=== PATIENT | male | born 1970 | race Caucasian/White ===

== ENCOUNTER 2023-08-06 10:21 | Outpatient (AMB) | payer OTHER, SELFPAY ==
[2023-08-06 12:09] VITALS: BP 120/68; PULSE 71; O2SAT 96; BMI 38.9
--- NOTE | 2023-08-06 12:09 | AM.OFFWIN_ITS ---
Intake Vital Signs 08/06/23 12:09 Height 6 ft Weight 287 lb BMI 38.9 BP 120/68 Blood Pressure Location Lt brachial Position Sitting Pulse 71 Pulse Source Pulse Oximeter Pulse Oximetry (%) 96 Oxygen Delivery Method Room Air Intake Visit Reasons: EP, left ankle pain Intake Note: Patient is here with left ankle pain since Saturday, while he was at work, noticed discomfort while he was working. Allergies No Known Allergies Allergy (Verified 08/06/23 12:11) HPI HPI Comments History of Present Illness Details Patient is a 53-year-old male in today for a sick visit. His chief complaint is left ankle pain x4 days. Patient denies any trauma to the ankle, he denies hearing any cracks crepitus or pops. He states that the pain can be so intense that he is unable to walk on it. The pain tends to come and go. One moment he is at home and he can stand on his left foot, and a couple hours later he says he is able to go out and play pickleball. States he has tried over-the- counter Motrin with little relief. Denies drinking EtOH. Patient's left foot and ankle has some edema. Patches of erythema present superficial to the calcaneus, medial malleolus, and on the top of the foot over the metatarsal region. Patient has +2 pedal pulses and +2 deep tendon reflexes. No tenderness to the calf. Patient has full range of motion. No crepitus or clunking noted. Monofilament positive. Patient has normal skin turgor and capillary refill time. On ambulation patient winces with pain and walks with a limp on the affected foot. Will obtain in office x-ray of left foot and ankle. Patient likely has sprain of the left ankle, will need to rule out gout with labs. This is unlikely to be a neurovascular compromise, a venous or arterial occlusion, and unlikely poses a threat limb. Will route patient ankle to give stabilization. Will prescribe the patient meloxicam to be taken as needed for pain. Patient has been stay instructed how to take this medication properly, and the common side effects associated with this medication. He has been educated not to take this medication with any other NSAIDs. Will also order a blood draw for uric acid. Patient is agreeable to this plan. Review of Systems Const Details: Constitutional : No Weight loss, No Fever, No Chills, No Fatigue. Cardiovascular : No Chest Pain, No SOB, No Dyspnea on Exertion, No Orthopne, No Palpitations Respiratory : No Cough, No Sputum, No Wheezing Gastrointestinal : No Nausea, No Vomiting, No Diarrhea, No Constipation, No abdominal Pain, No Hematochezia, No Melena Musculoskeletal : Admits left foot and ankle pain Skin : Redness over heal and on top of left foot. Neuro : No Weakness, No Numbness, No Dizziness, No Headache All other systems reviewed and are negative Physical Exam Vital Signs: BMI result Body Mass Index 38.9 Results have been reviewed vital signs are stable Const Other: Appearance: Alert.? Oriented X3.? No acute distress.? CVS: Normal heart rate and rhythm.? Pulses normal.? Skin: Erthema over left calcaneus and superficial to the metatarsals. Extremities: Some left foot edema.?plus 2 pulses. Neuro: Oriented X 3.? No motor deficit.? No sensory deficit.t General: no acute distress Assessment & Plan Assessment & Plan (1) Left ankle sprain: Code(s): S93.402A - Sprain of unspecified ligament of left ankle, initial encounter Qualifiers: Encounter type: initial encounter Involved ligament of ankle: unspecified ligament Qualified Code(s): S93.402A - Sprain of unspecified ligament of left ankle, initial encounter Plan: Patient had in office x-ray. Will prescribe meloxicam to be taken as needed and as directed for pain. Will obtain labs. Patient had left foot and ankle wrapped in office with the supportive Favio bandage. Patient has been instructed not to take any [id number] NSAIDs with meloxicam. He has been educated on signs of worsening symptoms and when to report to the walk-in clinic and when to report to the emergency room. He has been educated on common side effects of medication how to take properly. Patient is agreeable to this plan Orders: Orders XR ankle LT 2V Today M79.672 - Pain in left foot Uric Acid Today M79.672 - Pain in left foot Basic Metabolic Panel Today M79.672 - Pain in left foot Complete Blood Count Auto Diff Today M79.672 - Pain in left foot Medications: New meloxicam 15 mg PO DAILY 10 tabs 0RF Coding Level of Care Code New Pt Level 4 (29782) Diagnoses Sprain of left ankle, unspecified ligament, initial encounter S93.402A Encounter type: initial encounter Involved ligament of ankle: unspecified ligament Time Spent (min) 25
== END 2023-08-06 12:54 | disposition home or self-care (01) ==
PROVIDERS: PCP Internal Medicine; Visit Provider Nurse Practitioner Primary Care
DX: S93.402A Sprain of unspecified ligament of left ankle, initial encounter (principal)
CPT/HCPCS: 99204

== ENCOUNTER 2023-08-06 12:23 | Outpatient (REF) | payer OTHER, SELFPAY ==
--- NOTE | ~2023-08-06 | XR_ITS ---
EXAMINATION: XR ANKLE, LEFT CLINICAL INFORMATION: Left ankle pain COMPARISON: None available. TECHNIQUE: AP, lateral, and mortise views of the left ankle. FINDINGS: No acute visible fracture or dislocation. Ankle mortise is symmetric. Prominent enthesopathy at the Achilles tendon insertion site. Plantar calcaneal heel spur with slight ossification along the proximal plantar fascia. Degenerative changes along the inferior margin the medial malleolus. Joint spaces and alignment are otherwise maintained. Soft tissue prominence along the lateral malleolus. XR/XR ankle LT 2V IMPRESSION: 1. No acute visible fracture or dislocation. 2. Prominent enthesopathy at the Achilles tendon insertion site. 3. Plantar calcaneal heel spur with slight ossification along the proximal plantar fascia. 4. Soft tissue prominence along the lateral malleolus.
[2023-08-06 16:03] LABS: MANUAL DIFF FLAG NO
[2023-08-06 16:06] LABS: Basophils Absolute Auto 0.1 X10*3/uL (0.0-0.2); Basophils Percent Auto 0.8 % (0-2); Eosinophils Absolute Auto 0.2 X10*3/uL (0.0-0.4); Eosinophils Percent Auto 2.2 % (0-4); Hematocrit 41.3 % (42.0-52.0); Hemoglobin 13.3 g/dl (14.0-18.0); Imm Gran Abs Auto 0.03 X10*3/uL (0.00-0.03); Imm Gran Pct Auto 0.4 % (0.0-0.4); Lymphocytes Percent Auto 26.3 % (20-40); Mean Corpuscular HGB Conc 32.2 g/dl (31.0-36.0); Mean Corpuscular Hemoglobin 28.7 pg (27.0-33.0); Mean Corpuscular Volume 89.2 fL (80.0-98.0); Monocytes Absolute Auto 0.7 X10*3/uL (0.1-1.2); Monocytes Percent Auto 9.2 % (2-11); Neutrophils Absolute Auto 4.7 x10*3/uL (2.0-8.3); Neutrophils Percent Auto 61.1 % (45-73); Platelet Count 333 X10*3/uL (160-400); Red Blood Count 4.63 X10*6/uL (4.60-5.80); Red Cell Distribution Width 13.2 % (11.0-16.0); White Blood Count 7.7 X10*3/uL (4.8-10.8)
[2023-08-06 16:20] LABS: Anion Gap 9 (12-20); Blood Urea Nitrogen 15 mg/dL (9-16); Calcium 9.1 mg/dL (8.4-10.2); Carbon Dioxide 26 mmol/L (22-29); Chloride 112 mmol/L (96-108); Estimated Glomerular Filt Rate > 60; Glucose Random 98 mg/dL (60-115); Potassium 4.1 mmol/L (3.3-5.1); Sodium 143 mmol/L (135-145); Uric Acid 4.5 mg/dL (3.4-7.0)
== END 2023-08-06 12:24 | disposition home or self-care (01) ==
LOC: HO.HMGCX 12:23
PROVIDERS: Visit Provider Nurse Practitioner Primary Care
DX: M79.672 Pain in left foot (principal)
CPT/HCPCS: 36415; 73600; 80048; 84550; 85025

== ENCOUNTER 2024-02-06 06:55 | Outpatient (REF) | payer BC, SELFPAY ==
--- NOTE | ~2024-02-06 | XR_ITS ---
EXAMINATION: XR KNEE, RIGHT CLINICAL INFORMATION: Right knee pain. COMPARISON: None available. TECHNIQUE: Three views of the right knee. FINDINGS: Mild medial and patellofemoral compartment osteoarthritis with small marginal osteophytes and mild joint space narrowing. There is subtle focal erosion along the medial margin of the tibial plateau with displacement of a small band of chondrocalcinosis into this region. This is not specific but could correspond to a displaced meniscal flap tear. Chondrocalcinosis in the medial and lateral compartments. Small focus of chronic osseous fragmentation at the medial margin of the patella. Enthesopathic spurs at the quadriceps tendon insertion and patellar tendon origin. No joint effusion. XR/XR knee RT 3V IMPRESSION: 1. Mild medial and patellofemoral compartment osteoarthritis. 2. Subtle erosion of the medial margin of the tibial plateau with adjacent chondrocalcinosis extending into the site of erosion. The appearance is not specific, though this could correspond to a displaced flap tear of the medial meniscus.
== END 2024-02-06 06:56 | disposition home or self-care (01) ==
LOC: HO.HOSX 06:55
PROVIDERS: Visit Provider Orthopaedic Surgery
DX: M25.561 Pain in right knee (principal)
CPT/HCPCS: 73562

== ENCOUNTER 2024-02-06 08:49 | Outpatient (AMB) | payer BC, SELFPAY ==
--- NOTE | 2024-02-06 08:52 | A.OFFVIS_ITS ---
Vital Signs 02/06/24 08:53 Height 6 ft Weight 287 lb BMI 38.9 Intake Visit Reasons: N/P RT knee px Intake Note: Tom is a 53 year old Male who presents with complaints of progressively worsening right knee pain and giving way. The patient did undergo left knee arthroscopic surgery in 2019. He reports minimal discomfort in his left knee. The patient states that he injured his right knee approximately 6 months ago while playing pickleball. Twisted his knee and had acute onset of pain. Since that time his symptoms have gotten worse. He has failed the last 6 weeks of conservative treatment. He has tried Tylenol, ibuprofen, wearing a knee brace and applying heat which gave him minimal relief. Most of the pain is along the medial aspect of his knee. He states that his right knee will give out several times per day. 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 Physical Exam Vital Signs: BMI result Body Mass Index 38.9 Const Other: Well-nourished well-developed very friendly male awake alert and oriented x3 in no acute distress Extrem Other: Bilateral lower extremity examination shows good capillary refill, no skin lesions noted, normal sensation light touch Right knee examination shows a minimal effusion, minimal crepitus with range of motion, tenderness along his medial joint line, positive Anni's test, no instability Results Reviewed Results Reviewed: Standing full weight-bearing x-rays of the patient's right knee show minimal joint space narrowing, no acute bony abnormalities Assessment & Plan Assessment & Plan (1) Right knee pain: Code(s): M25.561 - Pain in right knee Category: Medical Plan Mr. Ferreira presents with progressively worsening right knee pain and mechanical symptoms most likely due to a tear of his medial meniscus. Thus, I will send the patient for an MRI of his right knee for further evaluation. I will see him back once the MRI is completed to discuss the findings and treatment options. Feel free to call me at any time should questions regarding his orthopedic management arise. Thank you very much for asking me to see this very friendly patient. I spent 21 minutes in reviewing the patient's records and imaging studies, seeing the patient and documenting in the medical record. Orders: Orders XR knee RT 3V Today M25.561 - Pain in right knee MR knee RT wo con Today M25.561 - Pain in right knee Coding Level of Care Code New Pt Level 3 (40629) Diagnoses Right knee pain M25.561
[2024-02-06 08:53] VITALS: BMI 38.9
== END 2024-02-06 09:17 | disposition home or self-care (01) ==
PROVIDERS: PCP Internal Medicine; Visit Provider Orthopaedic Surgery
DX: M25.561 Pain in right knee (principal)
CPT/HCPCS: 99203

== ENCOUNTER 2024-02-25 14:56 | Outpatient (AMB) | payer BC, SELFPAY ==
[2024-02-25 15:05] VITALS: BMI 40.4
--- NOTE | 2024-02-25 15:05 | MHC.OFFVIS ---
Vital Signs 02/25/24 15:05 Height 6 ft Weight 298 lb BMI 40.4 Intake Visit Reasons: O/V RT knee MRI review Intake Note: Tom is a 53 year old Male who presents with complaints of progressively worsening right knee pain and giving way. The patient did undergo left knee arthroscopic surgery in 2019. He reports minimal discomfort in his left knee. The patient states that he injured his right knee approximately 6 months ago while playing pickleball. Twisted his knee and had acute onset of pain. Since that time his symptoms have gotten worse. He has failed the last 6 weeks of conservative treatment. He has tried Tylenol, ibuprofen, wearing a knee brace and applying heat which gave him minimal relief. Most of the pain is along the medial aspect of his knee. He states that his right knee will give out several times per day. 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 Physical Exam Vital Signs: BMI result Body Mass Index 40.4 Const Other: Well-nourished well-developed very friendly male awake alert and oriented x3 in no acute distress Extrem Other: Bilateral lower extremity examination shows good capillary refill, no skin lesions noted, normal sensation light touch Right knee examination shows a minimal effusion, minimal crepitus with range of motion, tenderness along his medial joint line, positive Anni's test, no instability Results Reviewed Results Reviewed: MRI of the patient's right knee shows mild diffuse degenerative changes as well as a tear of the medial meniscus Assessment & Plan Assessment & Plan (1) Tear of medial meniscus of right knee: Code(s): S83.241A - Other tear of medial meniscus, current injury, right knee, initial encounter Category: Medical Plan Mr. Ferreira presents with progressively worsening right knee pain and mechanical symptoms due to a tear of his medial meniscus. I had a lengthy discussion with the patient regarding the treatment options. The patient states that he wishes to try chiropractic treatments. I have no problem with this. He will follow up with me on an as-needed basis should his symptoms not improve over time. If he fails continued non operative treatments we will further discuss the risks and benefits of arthroscopic surgery. That surgery would involve right knee diagnostic arthroscopy with arthroscopic partial medial meniscectomy. Feel free to call me at any time should questions regarding his orthopedic management arise. I spent 22 minutes in reviewing the patient's records and imaging studies, seeing the patient and documenting in the medical record. Coding Level of Care Code Est Pt Level 3 (22558) Diagnoses Tear of medial meniscus of right knee S83.241A
== END 2024-02-25 15:26 | disposition home or self-care (01) ==
PROVIDERS: PCP Internal Medicine; Visit Provider Orthopaedic Surgery
DX: S83.241A Other tear of medial meniscus, current injury, right knee, initial encounter (principal)
CPT/HCPCS: 99213

== ENCOUNTER → 2024-02-25 14:56 | Outpatient (BNVA) | payer BC, SELFPAY | PROVIDERS: PCP Internal Medicine; Visit Provider Orthopaedic Surgery ==